=== PATIENT | male | born 1990 | race Caucasian/White ===

== ENCOUNTER 2018-09-10 11:20 | Emergency (ER) | payer BC ==
[~2018-09-10] VITALS: Ht 185.4 cm; Wt 104.5 kg
[2018-09-10 11:20] VITALS: TEMP 80.7
[~2018-09-10 11:20] MED LIST: FLEXERIL 1010 MG/TAB PO; LORTAB 5/500 501 TAB PO; NICODERM C21 MG/PATC TD; NO HOME MEDICATIONS; NORCO 325 MG-51 TAB; ZOLOFT 100MG100 MG PO
[2018-09-10 11:41] LABS: BASO % 0.2 % (0.0-2.0); EOS # 0.1 (0.0-0.7); EOS % 0.5 % (0-4.0); GRAN # 15.3 (1.4-6.5); HEMATOCRIT 45.6 % (42.0-52.0); HEMOGLOBIN 15.7 g/dl (13.5-18.0); LYMPH # 2.2 (1.2-3.4); LYMPH % 11.7 % (20.0-51.0); MEAN CELL VOLUME 103 fl (80.0-100.0); MEAN CORPUSCULAR HEMOGLOBIN 35 pg (27.0-31.0); MEAN CORPUSCULAR HGB CONC 34 g/dl (33.0-37.0); MEAN PLATELET VOLUME 11.7 fl (7.4-10.4); MONO # 0.8 (0.1-0.6); MONO % 4.1 % (1.7-9.3); PLATELET COUNT 147 K/mm3 (130-400); RED BLOOD COUNT 4.43 M/mm3 (4.20-5.60); REDCELL DISTRIBUTION WIDTH-CV 11.9 % (11.5-14.5)
[2018-09-10 11:52] LABS: ALANINE AMINOTRANSFERASE 208 U/L (21-72); ALBUMIN 4.8 gm/dL (3.5-5.0); ALKALINE PHOSPHATASE 154 U/L (50-136); ANION GAP 24 mmol/L (7-16); AST,SGOT 439 U/L (15-37); BILIRUBIN,TOTAL 3.7 mg/dL (0.0-1.0); BLOOD UREA NITROGEN 29 mg/dL (9-20); CALCIUM 9.5 mg/dL (8.4-10.2); CARBON DIOXIDE 17 mmol/L (22-30); CHLORIDE 92 mmol/L (98-107); CREATININE, serum 1.28 mg/dL (0.66-1.25); GLUCOSE 224 mg/dL (74-106); SODIUM 133 mmol/L (137-145); TOTAL PROTEIN 7.8 gm/dL (6.4-8.2)
[2018-09-10 11:54] LABS: ALCOHOL(ethanol),MEDICAL < 10 mg/dL; POTASSIUM 6.2 mmol/L (3.4-5.0)
[2018-09-10 11:54] LABS: COLLECTION METHOD CATHETER
[2018-09-10 12:09] LABS: TRICYCLIC ANTIDEPRESS URINE POSITIVE
[2018-09-10 12:38] LABS: GRANULAR CAST >12 /lpf; HYALINE CAST >12 /lpf; MUCOUS Present /lpf; PH 5 (5-8); SQUAMOUS EPITHELIAL 0-2 /hpf; URINE APPEARANCE Hazy; URINE BACTERIA Rare /hpf; URINE BILIRUBIN Negative (NEGATIVE); URINE BLOOD 3+ (NEGATIVE); URINE COLOR Amber; URINE GLUCOSE Negative (NEGATIVE); URINE KETONE 2+ (NEGATIVE); URINE LEUKOCYTE ESTERASE Negative (NEGATIVE); URINE NITRATE Negative (NEGATIVE); URINE PROTEIN(semi-quant) 2+ (NEGATIVE); URINE RBC 0-2 /hpf; URINE UROBILINOGEN >=4.0 mg/dL (NEGATIVE)
[2018-09-10] MEDS ORDERED: ATARAX 25MG25 MG/TAB PO (13:03)
[2018-09-10] MEDS ORDERED: INDERAL LA 80MG80 MG PO (13:03)
[2018-09-10] MEDS ORDERED: SEROQUEL 1100 MG/TAB PO (13:03)
[2018-09-10] MEDS ORDERED: KLONOPIN 0.5MG0.5 MG PO (13:03)
[2018-09-10 13:27] VITALS: BP 142/71; PULSE 75
== END 2018-09-10 13:45 | disposition short-term general hospital (02) ==
LOC: COL.ER 11:20
PROVIDERS: Emergency Medicine
DX: M62.82 Rhabdomyolysis (principal); R00.1 Bradycardia, unspecified; E87.6 Hypokalemia; T68.XXXA Hypothermia, initial encounter
CPT/HCPCS: J0610; J1815; J7120

== ENCOUNTER → 2018-11-15 | Outpatient (CLI) | payer BC ==
[~2018-11-15] MED LIST changes: +ATARAX 25MG25 MG/TAB PO; +INDERAL LA 80MG80 MG PO; +KLONOPIN 0.5MG0.5 MG PO; +SEROQUEL 1100 MG/TAB PO
== END ==
LOC: COL.RAD 11:12
DX: M79.672 Pain in left foot (principal)

== ENCOUNTER 2024-02-14 07:30 | Inpatient (IN) | payer BC ==
[~2024-02-14] VITALS: Ht 172.7 cm; Wt 60.6 kg
[2024-02-14] MEDS ORDERED: Insulin Regular Human (NovoLIN R/HumuLIN R) SQ ONE (10:09)
[2024-02-14] MEDS ORDERED: Insulin Lispro (HumaLOG) SQ SCH (10:10)
[2024-02-14] MEDS ORDERED: Insulin Glargine-ygfn (Lantus) SQ ONE (11:42)
[2024-02-14] MEDS ORDERED: NS 1,000 ML IV SCH (11:43)
[2024-02-15] MEDS ORDERED: Acetaminophen 325 MG TAB PO PRN (06:50)
[2024-02-15] MEDS ORDERED: NS 1,000 ML IV SCH (07:49)
[2024-02-15] MEDS ORDERED: Insulin Lispro (HumaLOG) SQ SCH (08:00)
[2024-02-15] MEDS ORDERED: hydrOXYzine HCl 25 MG TAB PO SCH (09:00)
[2024-02-15] MEDS ORDERED: Sertraline 100 MG TAB PO SCH (09:00)
[2024-02-15] MEDS ORDERED: Dextrose 50% Water 25 GM/50 ML SYRINGE IV ONE (16:32)
[2024-02-15 16:34] VITALS: BP 100/64; PULSE 61; TEMP 98.8
--- NOTE | 2024-02-15 17:14 | NUR ---
social worker psychiatric was notified patient is being screened by [facility]. SW was notified by patient's nurse that patient was screened by [facility] and they are working on psych placement. SW attempted to meet with patient to complete assessment. Patient was sleeping and would not wake to answer questions. SW will follow up.
[2024-02-15 17:30] VITALS: BP 100/61; PULSE 64; TEMP 98.8
[2024-02-15] MEDS ORDERED: Dextrose (Glucose) 15 GM (4 x 3.75 GM) Chewable TABLET PACK PO PRN (17:30)
[2024-02-15] MEDS ORDERED: Glucagon 1 MG VIAL IM PRN (17:30)
[2024-02-15] MEDS ORDERED: Dextrose 50% Water 25 GM/50 ML SYRINGE IV PRN (17:30)
[2024-02-15] MEDS ORDERED: Sertraline 100 MG TAB PO ONE (18:15)
--- NOTE | 2024-02-15 20:00 | NUR ---
PT IN BED. HAS 1:1 SITTER FOR SI. IS ALERT AND ORIENTED. ASKS THIS NURSE ABOUT LEAVING AMA. DID ADVISE THAT WOULD NOT BE POSSIBLE D/T HIS ADMITTING DIAGNOSIS. PT REPORTS HE IS JUST HUNGRY ALL THE TIME, BUT FEELS BETTER AFTER HIS BLOOD SUGARS HAVE DECREASED. PROVIDED WITH SANDWICH AT THIS TIME. HAS IVF TO [facility] WITHOUT PROBLEM. INSULIN GIVEN AT THIS TIME.
[2024-02-15] MEDS ORDERED: Mirtazapine 15 MG TAB PO SCH (21:00)
[2024-02-15] MEDS ORDERED: Insulin Glargine-ygfn (Lantus) SQ SCH (21:00)
--- NOTE | 2024-02-15 21:15 | NUR ---
HS MEDS GIVEN, PT PROVIDED WITH NAMES/DOSES AND REASON FOR MEDS. TAKES WITHOUT PROBLEM. DENIES PAIN. SITTER AT BEDSIDE.
[2024-02-15 21:30] VITALS: BP 106/65; PULSE 70; TEMP 98.8
[2024-02-16] VITALS (7 sets, daily range): BP systolic 94–106; BP diastolic 55–67; PULSE 51–99; TEMP 97.5–97.7
--- NOTE | 2024-02-16 01:00 | NUR ---
PT RESTING IN BED. NO CONCERNS VOICED.
--- NOTE | 2024-02-16 01:05 | NUR ---
PATIENT BG AT 0009 WAS 126 PER GLUCOMETER
[2024-02-16 03:18] LABS: TSH w REFLEX 0.224 uIU/mL (0.350-4.940)
[2024-02-16 03:22] LABS: SALICYLATE < 5.0 mg/dL (15.0-30.0)
[2024-02-16 03:23] LABS: ALCOHOL(ethanol),MEDICAL < 10 mg/dL (0-10)
--- NOTE | 2024-02-16 04:00 | NUR ---
BLOOD BETCD=311. NO INSULIN NEEDED. HAS HAD LABS DRAWN AND COVID SWABBED FOR IP PLACEMENT FOR REHAB. PT SIGNS CONSENT TO HAVE THESE LABS FAXED TO FACILITY.
--- NOTE | 2024-02-16 04:53 | NUR ---
0035: TAYLOR FROM [facility] CALLED STATING THEY NEEDED MOST RECENT LABS/LABS PREFORMED ON PATIENT FOR PSYCH PLACEMENT. REQUESTING CBC, CMP, TSH, UA, UDS, TYLENOL LEVEL, SALICYLATE, ALCOHOL, CVOID, EKG, BLOOD GLUCOSE, AND MOST RECENT VITAL SIGNS. FAX [phone], PHONE [phone]. 0053: HERBER FROM [place] CALLED REQUESTING SAME INFORMATION FOR [place], FOR PLACEMENT AT [facility]. 0058: SPOKE WITH BETH DUFF. SOME LABS ALREADY COMPLETE. NEED TO ORDER REST FOR LABS FOR PLACEMENT. PER BETH OKROSA TO ORDER WHAT IS NEEDED. LIST REVIEWED. 0330: PENDING UA. PATIENT UNABLE TO PROVIDE SAMPLE AT THIS TIME.E 0411: KANG FROM [facility] CALLED TO FOLLOW UP ON RESULTS. UA STILL PENDING. PATIENT UNABLE TO PROVIDE SAMPLE AT THIS TIME. PATIENT SIGNED MEDICAL CONSENT FOR [facility]. ALL RESULTS FAXED TO [facility] ([phone]) AND TO [facility] WITH NOTIFICATIONS OF PENDING UA.
--- NOTE | 2024-02-16 06:00 | NUR ---
REMAINS ON SI WATCH WITH SITTER AT BEDSIDE.
--- NOTE | 2024-02-16 06:22 | NUR ---
PATIENT ACCEPTED AT [facility] PER AJ WITH PATIENT INTAKE. DR. KELSEY MENDOZA. PATIENT WILL BE GOING TO [facility] 3RD FLOOR. CALL BACK NUMBER [phone].
--- NOTE | 2024-02-16 08:37 | NUR ---
DUE TO DOWNTIME, DOCUMENTATIONS ON [facility] COMPLETED POST CARE BY KENDRA JOE RN; REFER TO SCANNED DOWNTIME PAPER DOCUMENTATION [facility] FULL CARE DOCUMENTATION.
[2024-02-16] MEDS ORDERED: GLUCOPHAGE500 MG/TAB PO (08:49)
[2024-02-16] MEDS ORDERED: NOVOLOG FLEX100 U/ML SQ (08:51)
--- NOTE | 2024-02-16 08:56 | NUR ---
Pt doing well this morning. He is quite, no questions or complaints of anything. Pt is aware that he will be going to [facility] this morning. I have talked with nurse Makayla and gave report. Pt has had breakfast, no issues or complaints with that.
--- NOTE | 2024-02-16 09:10 | NUR ---
Transportation here to get pt.
--- NOTE | 2024-02-16 12:06 | NUR ---
composite bond worker was notified patient has placement at [facility] for psychiatric evaluation. JENNA contacted [facility] to determine the pharmacy for discharge orders. [facility] expressed to send to patient's normal pharmacy as their facility will cover the ones he will be on during his stay there. JENNA faxed discharge orders to [facility]. JENNA met with patient to complete assessment. Patient lives in [place]. Patient reports he does not have insurance and does not have a PCP currently. JENNA provided information regarding the [facility]. Pharmacy is [facility]. No issues affording medcations. Best contact is Elizabeth Arreola, P# [phone]. No DPOA-HC and not interested in completing one at this time. No DME and reports to be independent with ADLS. Patient reports being able to transport himself to and from appointments. Patient understands he will be going to [facility] for psych consultation. [facility] came and transported patient. Discharge plan: [facility]
[2024-02-16] MEDS ORDERED: NS 1,000 ML IV ONE (16:00)
== END 2024-02-16 09:10 | DRG 638 ==
LOC: COL.ER 07:30 → SURG 02-15 15:00
PROVIDERS: Internal Medicine; ADMIT Internal Medicine
DX: E11.65 Type 2 diabetes mellitus with hyperglycemia (principal); R45.851 Suicidal ideations; F41.9 Anxiety disorder, unspecified; F32.A Depression, unspecified; F43.10 Post-traumatic stress disorder, unspecified; F10.10 Alcohol abuse, uncomplicated; G47.00 Insomnia, unspecified; E80.6 Other disorders of bilirubin metabolism; Z20.822 Contact with and (suspected) exposure to COVID-19
CPT/HCPCS: J1815; J7030